=== PATIENT | male | born 1955 | race Caucasian/White ===

== ENCOUNTER 2022-03-10 15:04 | Emergency (ER) | payer OTHER ==
[2022-03-10 16:00] LABS: Urine Blood 2+ (Negative); Urine Glucose Negative (Negative); Urine Protein 1+ (Negative); Urine Specific Gravity 1.025 (1.005-1.030); Urine pH 5.5 (5.0-7.0)
--- OUTSIDE RECORDS SUMMARY | 2022-03-10 16:16 | XMS REPORT | Continuity of Care Document ---
:1955 Author Organization [facility] t Address [address] [place] [address] Care Team Providers Name Role Phone Unavailable Unavailable Unavailable Problems This patient has no known problems. Allergies, Adverse Reactions, Alerts This patient has no known allergies or adverse reactions. Medications This patient has no known medications. Procedures This patient has no known procedures. Encounters Start End Encounter Admission Attending Care Care Encounter Source Date/Time Date/Time Type Type Clinicians Facility Department ID 2021-07-[facility] [id number] Common 11:51:35 [id number] [facility] 2020-04-30 2020-04-30 [facility] [id number] Common 00:00:00 00:00:00 [facility] Results This patient has no known results.
[2022-03-10 16:22] LABS: Absolute Lymphocytes (CBC) 1.4 K/uL (0.7-4.9); Hematocrit 47.2 % (39.6-49.0); Lymphocytes % 9.1 % (15.3-44.8); MPV 8.3 fL (7.6-11.3); RBC Red Blood Cell Count 5.02 M/uL (4.33-5.43)
[2022-03-10 16:50] LABS: Bilirubin Total 0.7 mg/dL (0.2-1.0); Potassium 4.3 mmol/L (3.5-5.1); Protein, Total 7.5 g/dL (6.4-8.2)
--- NOTE | 2022-03-10 16:53 | RAD REPORT ---
EXAM DESCRIPTION: CT - Abdomen Pelvis Wo Contrast - 03/10/2022 4:31 pm CLINICAL HISTORY: Abdominal pain COMPARISON: None TECHNIQUE: Computed axial tomography of the abdomen and pelvis was obtained. IV and oral contrast we re not requested. All CT scans are performed using dose optimization technique as appropriate and may include automated exposure control or mA/KV adjustment according to patient size. FINDINGS: The evaluation of solid organs, vessels and bowel is limited secondary to the lack of con trast administration. The liver, spleen, pancreas, and right tree appear grossly normal. 19 millimeter left adrenal mass. Small bilateral renal cysts. No hydronephrosis. The appendix is normal. There is no evidence of diverticulitis. Small bladder diverticulum. Prostate gland is mildly enlarged. Spondylosis lumbar spine Wall of the posterior gastric fundus appears thickened. IMPRESSION: 19 millimeter left adrenal mass is nonspecific. 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 Follow-up CT could be obtained in 3 months to assess stability. Alternatively an MRI could be perform ed. Apparent thickening of the wall of the posterior gastric fundus could be secondary to incomplete dist ention or mass. Either follow-up CT imaging with oral contrast or EGD should be obtained
--- NOTE | 2022-03-10 17:07 | EDPHYS ---
Physician Documentation [facility] Name: Aj Siegel Age: 66 yrs Sex: Male : 1955 Arrival Date: 03/10/2022 Time: 15:06 Bed 26 Private MD: Jose G Rubalcava ED Physician Lc Martinez HPI: 03/10 17:02 This 66 yrs old Male presents to ER via Ambulatory with complaints of Back jl9 Pain. Patient reports his back pain started after riding his bike yesterday. He had a sharp pain yesterday which resolved quickly. . 17:02 The patient presents with pain that is acute, with no known mechanism of injury. The jl9 symptoms are located in the low back. Onset: The symptoms/episode began/occurred suddenly. The pain does not radiate. Associated signs and symptoms: The patient has no apparent associated signs or symptoms. The problem was sustained from unknown cause. Modifying factors: The patient symptoms are alleviated by nothing, the patient symptoms are aggravated by nothing. Severity of symptoms: in the emergency department the symptoms have resolved. Historical: - Allergies: 15:41 No Known Allergies; bm7 - Home Meds: 15:41 lisinopril 20 mg Oral tab 1 tab once daily [Active]; bm7 - PMHx: 15:41 Hypertensive disorder; bm7 - PSHx: 15:41 None; bm7 - Immunization history:: Adult Immunizations up to date, Client reports receiving the 2nd dose of the Covid vaccine, Client reports receiving the 1st dose of the Covid vaccine. - Social history:: Smoking status: Patient denies any tobacco usage or history of. ROS: 17:03 Constitutional: Negative for fever, chills, and weight loss, Eyes: Negative for injury, jl9 pain, redness, and discharge, ENT: Negative for injury, pain, and discharge, Neck: Negative for injury, pain, and swelling, Cardiovascular: Negative for chest pain, palpitations, and edema, Respiratory: Negative for shortness of breath, cough, wheezing, and pleuritic chest pain, Abdomen/GI: Negative for abdominal pain, nausea, vomiting, diarrhea, and constipation. 17:03 : Negative for injury, bleeding, discharge, and swelling, MS/Extremity: Negative for injury and deformity, Skin: Negative for injury, rash, and discoloration, Neuro: Negative for headache, weakness, numbness, tingling, and seizure, Psych: Negative for depression, anxiety, suicide ideation, homicidal ideation, and hallucinations, Allergy/Immunology: Negative for hives, rash, and allergies, Endocrine: Negative for neck swelling, polydipsia, polyuria, polyphagia, and marked weight changes, Hematologic/Lymphatic: Negative for swollen nodes, abnormal bleeding, and unusual bruising. 17:03 Back: Positive for pain with movement. Exam: 17:03 Constitutional: This is a well developed, well nourished patient who is awake, alert, jl9 and in no acute distress. Head/Face: Normocephalic, atraumatic. Eyes: Pupils equal round and reactive to light, extra-ocular motions intact. Lids and lashes normal. Conjunctiva and sclera are non-icteric and not injected. Cornea within normal limits. Periorbital areas with no swelling, redness, or edema. ENT: Mucous membranes moist. Neck: Trachea midline, no thyromegaly or masses palpated, and no cervical lymphadenopathy. Supple, full range of motion without nuchal rigidity, or vertebral point tenderness. No Meningismus. Chest/axilla: Normal chest wall appearance and motion. Nontender with no deformity. No lesions are appreciated. Cardiovascular: Regular rate and rhythm with a normal S1 and S2. No gallops, murmurs, or rubs. Normal PMI, no JVD. No pulse deficits. Respiratory: Lungs have equal breath sounds bilaterally, clear to auscultation and percussion. No rales, rhonchi or wheezes noted. No increased work of breathing, no retractions or nasal flaring. Abdomen/GI: Soft, non-tender, with normal bowel sounds. No distension or tympany. No guarding or rebound. No evidence of tenderness throughout. Back: No spinal tenderness. No costovertebral tenderness. Full range of motion. Skin: Warm, dry with normal turgor. Normal color with no rashes, no lesions, and no evidence of cellulitis. MS/ Extremity: Pulses equal, no cyanosis. Neurovascular intact. Full, normal range of motion. Neuro: Awake and alert, GCS 15, oriented to person, place, time, and situation. Cranial nerves II-XII grossly intact. Motor strength 5/5 in all extremities. Sensory grossly intact. Cerebellar exam normal. Normal gait. Psych: Awake, alert, with orientation to person, place and time. Behavior, mood, and affect are within normal limits. Vital Signs: 15:39 BP 127 / 89; Pulse 78; Resp 18; Temp 97.9(TE); Pulse Ox 100% on R/A; Weight 72.57 kg bm7 (R); Height 5 ft. 11 in. (180.34 cm); Pain 6/10; 15:39 Body Mass Index 22.32 (72.57 kg, 180.34 cm) bm7 MDM: 16:21 Patient medically screened. jl9 17:03 Data reviewed: vital signs, nurses notes. Counseling: I had a detailed discussion with jl9 the patient and/or guardian regarding: the historical points, exam findings, and any diagnostic results supporting the discharge/admit diagnosis, lab results, radiology results, to return to the emergency department if symptoms worsen or persist or if there are any questions or concerns that arise at home, . 17:04 Counseling: I had a detailed discussion with the patient and/or guardian regarding: haylee Discussed findings with patient. Patient reports knowing about the adenoma. Patient sees his PCP regularly. Patient is asymptomatic and wishes to be discharged to follow up with PCP. Patient non-toxic appearing and denies any symptoms. . 03/10 16:00 Order name: Urine Dipstick-Ancillary; Complete Time: 16:04 EDTN 03/10 16:08 Order name: CBC with Diff; Complete Time: 16:54 [facility] 03/10 15:43 Order name: Urine Dipstick-Ancillary (obtain specimen); Complete Time: 16:12 [facility] 03/10 16:08 Order name: CMP; Complete Time: 16:54 03/10 16:08 Order name: Lipase; Complete Time: 16:54 [facility] 03/10 16:08 Order name: CT Abd/Pelvis - Without Contrast; Complete Time: 16:54 03/10 16:08 Order name: IV Saline Lock; Complete Time: 16:51 03/10 16:08 Order name: Labs collected and sent; Complete Time: 16:51 jl Administered Medications: No medications were administered Disposition Summary: 03/10/22 17:06 Discharge Ordered Location: Home [facility] Condition: Stable jl9 Diagnosis - Low back pain jl9 Followup: jl9 - With: Private Physician - When: 1 - 2 days - Reason: Recheck today's complaints, Continuance of care, Re-evaluation by your physician Discharge Instructions: - Discharge Summary Sheet jl9 - Acute Back Pain, Adult jl9 Forms: - Medication Reconciliation Form jl9 - Thank You Letter jl9 - Antibiotic Education jl9 - Prescription Opioid Use jl9 Prescriptions: - Cyclobenzaprine 10 mg Oral Tablet - take 1 tablet by ORAL route every 8 hours As needed; 30 tablet; Refills: 0, jl9 Product Selection Permitted Signatures: Dispatcher [employer] Shania Diaz RN RN bm7 Peterson Clemente jl9
--- NOTE | 2022-03-10 17:07 | ER ---
Nurse's Notes [facility] Name: Aj Siegel Age: 66 yrs Sex: Male : 1955 Arrival Date: 03/10/2022 Time: 15:06 Bed 26 Private MD: Jose G Rubalcava Diagnosis: Low back pain Presentation: 03/10 15:39 Chief complaint: Patient states: I was riding a stationary bike yesterday and when I bm7 got off my right lower back started hurting really bad. I wasn't able to sleep or get comfortable. My friend said that my kidney could be infected so I wanted to get checked out. Coronavirus screen: At this time, the client does not indicate any symptoms associated with coronavirus-19. Ebola Screen: No symptoms or risks identified at this time. Initial Sepsis Screen: Does the patient meet any 2 criteria? No. Patient's initial sepsis screen is negative. Does the patient have a suspected source of infection? No. Patient's initial sepsis screen is negative. Risk Assessment: Do you want to hurt yourself or someone else? Patient reports no desire to harm self or others. Onset of symptoms was March 09, 2022. 15:39 Method Of Arrival: Ambulatory bm7 15:39 Acuity: KALANI 3 bm7 Triage Assessment: 15:41 General: Appears in no apparent distress. uncomfortable, Behavior is calm, cooperative, bm7 appropriate for age. Pain: Complains of pain in right low back Pain does not radiate. EENT: No deficits noted. No signs and/or symptoms were reported regarding the EENT system. Neuro: No deficits noted. Cardiovascular: No deficits noted. Respiratory: No deficits noted. GI: No deficits noted. No signs and/or symptoms were reported involving the gastrointestinal system. : Reports cramping, in right lower back inability to void, urinary frequency. Derm: No deficits noted. No signs and/or symptoms reported regarding the dermatologic system. Musculoskeletal: Capillary refill < 3 seconds, Reports pain in right low back. Historical: - Allergies: 15:41 No Known Allergies; bm7 - Home Meds: 15:41 lisinopril 20 mg Oral tab 1 tab once daily [Active]; bm7 - PMHx: 15:41 Hypertensive disorder; bm7 - PSHx: 15:41 None; bm7 - Immunization history:: Adult Immunizations up to date, Client reports receiving the 2nd dose of the Covid vaccine, Client reports receiving the 1st dose of the Covid vaccine. - Social history:: Smoking status: Patient denies any tobacco usage or history of. Screenin:08 Abuse screen: Denies threats or abuse. Denies injuries from another. Nutritional hb screening: No deficits noted. Tuberculosis screening: No symptoms or risk factors identified. Fall Risk None identified. Assessment: 16:00 General: Appears in no apparent distress. Behavior is calm, cooperative. hb 16:00 Neuro: Level of Consciousness is awake, alert, obeys commands, Oriented to person, hb place, time, situation. Cardiovascular: Patient's skin is warm and dry. Respiratory: Respiratory effort is even, unlabored, Respiratory pattern is regular, symmetrical. GI: No signs and/or symptoms were reported involving the gastrointestinal system. : No signs and/or symptoms were reported regarding the genitourinary system. EENT: No signs and/or symptoms were reported regarding the EENT system. Derm: Skin is pink, warm \T\ dry. Musculoskeletal: Reports back pain. Vital Signs: 15:39 BP 127 / 89; Pulse 78; Resp 18; Temp 97.9(TE); Pulse Ox 100% on R/A; Weight 72.57 kg bm7 (R); Height 5 ft. 11 in. (180.34 cm); Pain 6/10; 15:39 Body Mass Index 22.32 (72.57 kg, 180.34 cm) bm7 ED Course: 15:06 Patient arrived in ED. mr 15:07 Jose G Rubalcava is Private Physician. mr 15:33 ClementePeterson patel [facility] jl9 15:33 Lc Martinez MD is Attending Physician. jl9 15:41 Triage completed. bm7 15:41 Arm band placed on right wrist. bm7 16:32 CT Abd/Pelvis - Without Contrast In Process Unspecified. EDMS 17:08 Davida Dee, RN is Primary Nurse. hb 17:08 Patient has correct armband on for positive identification. hb 17:08 No provider procedures requiring assistance completed. hb 17:19 IV discontinued, intact, bleeding controlled, No redness/swelling at site. hb Administered Medications: No medications were administered Medication: 17:09 VIS not applicable for this client. hb Outcome: 17:06 Discharge ordered by MD. leach 17:19 Discharged to home ambulatory. 17:19 Condition: stable 17:19 Discharge instructions given to patient, Instructed on discharge instructions, follow up and referral plans. medication usage, Demonstrated understanding of instructions, follow-up care, medications, Prescriptions given X 1. 17:19 Patient left the ED. Signatures: Dispatcher [employer] EDID Blanche Day Heather, RN RN hb McCarthy, Brittany, RN RN bm7 Linares, John jl9
[2022-03-10 17:27] VITALS: BP 127/89; TEMP 97.9; O2SAT 100
== END 2022-03-10 17:19 | disposition home or self-care (01) ==
LOC: ER 15:04
DX: M54.50 Low back pain, unspecified (principal); I10 Essential (primary) hypertension
CPT/HCPCS: 36415; 74176; 80053; 81003; 83690; 85025; 99283